=== PATIENT | male | born 1965 | race Caucasian/White ===

== ENCOUNTER 2017-03-31 12:02 | Emergency (ER) | payer OTHER ==
[2017-03-31 12:12] VITALS: BP 127/84
--- NOTE | 2017-03-31 18:18 | ED ---
Sue Crowder SooYoung, scribed for Matt Glass MD on 03/31/17 at 1440 . Throat Pain/Nasal Congestion - HPI Summary HPI Summary: A 51 y/o M presents to ED with blurry vision in L eye onset for past week, first c/o sx to partner yesterday. Partner is present and translating for pt because pt is deaf. Associated sx: photophobia onset today. Denies pain. He states no R-sided eye changes. Pt is very short sighted, and has PMHx: retinal detachment last occurring 10 years ago, minor retinal tears. Pt is scheduled to see an soda flaker in 3 weeks. - History of Current Complaint Chief Complaint: EDEyeProblem Time Seen by Provider: 03/31/17 14:31 Hx Obtained From: Family/Sports Specialist - partner acting as scenario writer Onset/Duration: Lasting Days - approx one week, first c/o it yesterday, Still Present Severity: Moderate PMH/Surg Hx/FS Hx/Imm Hx Previously Healthy: No Sensory History: Reports: Hx Contacts or Glasses, Hx Vision Problem, Hx Deafness Opthamlomology History: Reports: Hx Contacts or Glasses, Hx Vision Problem EENT History: Reports: Hx Deafness Infectious Disease History: Yes Infectious Disease History: Denies: Traveled Outside the [place] in Last 30 Days - Family History Known Family History: Positive: Other - [place] Negative: Cardiac Disease, Hypertension, Diabetes - Social History Occupation: Employed Full-time Lives: With Family Alcohol Use: Rare Hx Substance Use: No Substance Use Type: Reports: None Hx Tobacco Use: No Smoking Status (MU): Never Smoked Tobacco Review of Systems Negative: Fever Positive: Photophobia, Blurred Vision, Other - Neg: eye pain All Other Systems Reviewed And Are Negative: Yes Physical Exam Triage Information Reviewed: Yes Vital Signs On Initial Exam: Initial Vitals Temp Pulse Resp BP Pulse Ox 97.3 F 73 19 127/84 98 03/31/17 12:07 03/31/17 12:07 03/31/17 12:07 03/31/17 12:07 03/31/17 12:07 Vital Signs Reviewed: Yes Appearance: Positive: Well-Appearing, No Pain Distress Skin: Positive: Warm, Skin Color Reflects Adequate Perfusion, Dry Head/Face: Positive: Normal Head/Face Inspection Eyes: Positive: Other: - Unable to acurately discern architecture of either fundus. ENT: Positive: Normal ENT inspection Neck: Positive: Supple, Nontender Respiratory/Lung Sounds: Positive: Clear to Auscultation, Breath Sounds Present Cardiovascular: Positive: RRR Abdomen Description: Positive: Nontender, Soft Bowel Sounds: Positive: Present Musculoskeletal: Positive: Normal Neurological: Positive: Normal Psychiatric: Positive: Normal, Affect/Mood Appropriate Diagnostics - Vital Signs Vital Signs Temp Pulse Resp BP Pulse Ox 03/31/17 12:07 97.3 F 73 19 127/84 98 - Laboratory Lab Statement: Any lab studies that have been ordered have been reviewed, and results considered in the medical decision making process. EENT Course/Dx - Course Course Of Treatment: Mr. Jeff Martinez has a history of retinal detachment and subsequent tears. He has not seen an opthalmologist for 1 1/2 years since coming to [place]. He told his partner yesterday that he has had blurry vision in the left eye only for about a week. I was unable to discern much in either fundi and certainly think he needs to be examined by an opthalmologist. We do not have one installation engineer today, however, given that his symptoms have been present for a week without any change, I think he can wait until tomorrow and I arranged for him to be seen tomorrow morning in Dr. Pang's office. Retinal detachment or tear is a possibility. His anterior chamber is clear and his pupil reactive. - Diagnoses Provider Diagnoses: Blurred vision, left eye - Provider Notifications Time Discussed With Above Provider: 15:26 Instructed by Provider To: Other - Consult with PA in Dr. Pang' office. Will contact pt tomorrow for f/u. Discharge - Discharge Plan Condition: Stable Disposition: HOME Patient Education Materials: Blurred Vision (ED) Referrals: No Primary Care Phys,NOPCP [Primary Care Provider] - Venkata Pang MD [Medical Doctor] - 1 Day (Follow up with Dr. Pang's office tomorrow. They will contact you.) Additional Instructions: Follow up with Dr. Pang's office tomorrow. They will contact you. Please return to the ED if you experience new or worsening symptoms. The documentation as recorded by the Sue man SooYoung accurately reflects the service I personally performed and the decisions made by , Matt Glass MD.
== END 2017-03-31 15:44 | disposition home or self-care (01) ==
LOC: ED 12:02
DX: H53.8 Other visual disturbances (principal); H91.3 Deaf nonspeaking, not elsewhere classified
CPT/HCPCS: 99282

== ENCOUNTER 2017-05-28 13:05 | Day surgery (SDC) | payer OTHER ==
[~2017-05-28 13:05] MED LIST: Buffered Lidocaine 0.9% SYRIN* 5 ML/SYR SYRINGE INTRADERM ONE
[2017-05-28] MEDS ORDERED: Midazolam* 1 MG/ML 2 ML VIAL (2 MG) ONE (15:49)
[2017-05-28] MEDS ORDERED: fentaNYL* 50 MCG/ML 2 ML VIAL (100 MCG VIAL) ONE (15:49)
[2017-05-28] MEDS ORDERED: Phenylephr/Ketorolac 1%/0.3% OPH DROP BTL ONE (16:20)
[2017-05-28 16:58] VITALS: BP 110/86
--- NOTE | 2017-05-29 07:23 | OP ---
DATE OF OPERATION: 05/28/17 [facility] DATE OF : 67 SURGEON: Venkata Pang MD. WOOL SACKER: None. ANESTHESIOLOGIST: Chance Drew DO ANESTHESIA: Topical with intravenous sedation PRE-OP DIAGNOSIS: Cataract and glaucoma, left eye. POST-OP DIAGNOSIS: Cataract and glaucoma, left eye. OPERATIVE PROCEDURE: Phacoemulsification cataract extraction with posterior chamber intraocular lens implant and iStent left eye. COMPLICATIONS: None. BLOOD LOSS: None. DESCRIPTION OF PROCEDURE: The patient was brought to the operating room and given a small amount of intra-venous sedation. A drop of Tetracaine was placed in his left eye. The patient was prepped and draped in usual sterile fashion for ophthalmic surgery and attention was directed to the left eye, where a speculum was placed. A paracentesis was created at the 5 o'clock position; 0.1 cc of 1% preservative-free lidocaine was injected into the anterior chamber followed by DisCoVisc. The eye was digitally stabilized while a 2.75 mm keratome was used to create a triplanar clear corneal incision at the 3 o'clock position. A continuous curvilinear capsulorrhexis was created with a cystotome and Utrata forceps. BSS on a cannula was used to hydrodissect the lens from the capsule. It was noted that the pupil was approximately 4 mm and getting smaller, so Omidria was added to the irrigating solution. After BSS on a cannula was used to hydrodissect the lens from the capsule, phacoemulsification was performed in a gcuyxw-[id number]-[id number] technique to create four fragments which were removed. Residual cortical material was removed with irrigation and aspiration. The patient was fairly myopic and his capsular bag was flopping posteriorly during the case but no complications occurred. DisCoVisc was used to inflate the capsule and an AU00T0 14.0 diopter lens was inserted into the capsular bag. Supplemental DisCoVisc was used to deepen the anterior chamber and coat the surface of the cornea. The patient's head was rotated away from the surgeon and the microscope was rotated towards the surgeon. A gonioprism was placed on the surface of the eye and an iStent with its rotary helper was introduced into the anterior chamber. Under direct visualization, the eye stent was inserted into the trabecular meshwork nasally. The iStent rotary helper and gonioprism were removed. The patient's head and microscope were rotated to a neutral position. Irrigation and aspiration was performed to remove viscoelastic from the eye. BSS on a cannula was used to hydrate the corneal stroma and seal the wound. At the end of the case, the pupil was round and the lens was centered. The iStent was in position. The eye pressure appeared normal and the wound was watertight. The speculum was removed and topical Maxitrol ointment was placed on the surface of the eye. The eye was closed, patched and shielded and the patient was sent to recovery room in stable condition with postop instructions and followup appointment given. [id number]/[facility] #: [id number] DOMINICK
== END 2017-05-28 16:44 | disposition home or self-care (01) ==
LOC: OREAST 13:05
PROVIDERS: ATTEND Ophthalmology
DX: H25.12 Age-related nuclear cataract, left eye (principal); H25.042 Posterior subcapsular polar age-related cataract, left eye; H40.89 Other specified glaucoma; B20 Human immunodeficiency virus [HIV] disease
CPT/HCPCS: C1783; C9447; J2250; J3010; V2632

== ENCOUNTER 2018-05-13 11:11 | Day surgery (SDC) | payer OTHER ==
[~2018-05-13 11:11] MED LIST changes: +Acetaminophen TAB* 325 MG PO PRN
[2018-05-13] MEDS ORDERED: Midazolam* 1 MG/ML 2 ML VIAL (2 MG) ONE (12:47)
[2018-05-13] MEDS ORDERED: fentaNYL* 50 MCG/ML 2 ML VIAL (100 MCG VIAL) ONE (12:47)
[2018-05-13 14:03] VITALS: BP 104/79
[2018-05-13] MEDS ORDERED: Tetracaine 0.5% OPTH.SOL 4 ML* 1 DROP BTL ONE (14:15)
[2018-05-13] MEDS ORDERED: Cyclopentolate 1% OPTH.SOL* 2 ML BTL ONE (14:15)
[2018-05-13] MEDS ORDERED: Phenylephrine 2.5% OPTH.SOL* 2 ML BTL ONE (14:15)
[2018-05-13] MEDS ORDERED: Neomycin/Polymy/Dex OPHTH.OIN* 3.5 GM ONE (14:15)
[2018-05-13] MEDS ORDERED: Tropicamide 1% OPTH.SOL* BTL ONE (14:15)
[2018-05-13] MEDS ORDERED: Ketorolac 0.5% OPHTH (NF) 0.5 % 5 ML BTL ONE (14:15)
[2018-05-13] MEDS ORDERED: Lidocaine 1%* 5 ML VIAL ONE (14:15)
--- NOTE | 2018-05-14 08:36 | OP ---
DATE OF OPERATION: 05/13/18 - [facility] DATE OF : 67 SURGEON: Venkata Pang MD HOME SERVICE DIRECTOR: None. PRE-OP DIAGNOSES: Cataract and glaucoma, right eye. POST-OP DIAGNOSES: Cataract and glaucoma, right eye. OPERATIVE PROCEDURE: Phacoemulsification and cataract extraction with posterior chamber intraocular lens implant, right eye and iStent inject implant, right eye. COMPLICATIONS: None. BLOOD LOSS: None. DESCRIPTION OF PROCEDURE: The patient was brought to the operating room and given intravenous sedation. A drop of tetracaine was placed into his right eye. The patient was prepped and draped in the usual sterile fashion for ophthalmic surgery and attention was directed to the right eye where a speculum was placed. A paracentesis was created at the 11 o'clock position and 0.1 cc of 1% preservative- free lidocaine was injected into the anterior chamber followed by DisCoVisc. The eye was digitally stabilized while a 2.75-mm keratome was used to create a triplanar clear corneal incision at the 9 o'clock position. A continuous curvilinear capsulorrhexis was created with a cystotome and Utrata forceps. BSS on a cannula was used to hydrodissect the lens from the capsule. Phacoemulsification was performed in a [id number]-lyu-cvylhzy technique to create 4 fragments. Omidria was added to irrigating solution as the pupil began to come down. The 4 fragments were removed and residual cortical material was aspirated. An AU00T0 13.5 diopter lens was inserted into the capsule. Supplemental DisCoVisc was used to deepen the anterior chamber and coat the surface of the cornea. The patient's head was rotated away from the surgeon and the microscope was rotated towards the surgeon. A gonioprism was placed on the surface of the eye. An iStent inject was introduced into the anterior chamber. Under direct visualization, 2 iStent injects were placed at the 2 o'clock and 4 o'clock position along the trabecular meshwork. The mat tester was removed gonioprism. The patient's head and the microscope were returned to a neutral position. Irrigation and aspiration were performed to remove viscoelastic from the eye. BSS on a cannula was used to hydrate the corneal stroma and seal the wound. At the end of the case, the pupil was round. The lens was centered and stable. The iStent was in good position. The eye pressure appeared normal and the wound was watertight. The speculum was removed and topical Maxitrol ointment was placed on the surface of the eye. The eye was closed, patched, and shielded, and the patient was sent to the recovery room in stable condition with postop instructions and followup appointment given. [id number]/[facility] #: [id number] MTDD
== END 2018-05-13 14:02 | disposition home or self-care (01) ==
LOC: OREAST 11:11
PROVIDERS: ATTEND Ophthalmology
DX: H25.11 Age-related nuclear cataract, right eye (principal); H40.1111 Primary open-angle glaucoma, right eye, mild stage; Z21 Asymptomatic human immunodeficiency virus [HIV] infection status; H91.90 Unspecified hearing loss, unspecified ear
CPT/HCPCS: A9270-GY; C1783; J2250; J3010; V2632